=== PATIENT | female | born 1980 | race African-American/Black ===

== ENCOUNTER 2020-10-21 08:53 | Emergency (ER) | payer MEDICAID, OTHER ==
[~2020-10-21] VITALS: Ht 170.2 cm; Wt 73.0 kg
[2020-10-21 09:37] LABS: BASOPHILS % 0.6 % (0.0-2.0); EOSINOPHILS % 0.6 % (0.0-5.0); HEMATOCRIT. 37.9 % (36.0-48.0); HEMOGLOBIN. 12.7 g/dL (12.0-16.0); LYMPHOCYTES % 16.4 % (20.0-50.0); MEAN CORPUSCULAR HEMOGLOBIN 29.9 pg (28.0-32.0); MEAN CORPUSCULAR VOLUME 89.1 fL (81.0-99.0); NEUTROPHILS % 73.4 % (40.0-76.0); PLATELET 250 x1000/uL (130-400); RED BLOOD CELL COUNT 4.25 mill/uL (4.2-5.4); RED CELL DISTRIBUTION WIDTH 14.3 % (11.6-14.6)
[2020-10-21 09:43] LABS: CHLORIDE 110 mEq/L (98-107)
[2020-10-21 09:47] LABS: CLARITY URINE CLEAR (CLEAR); COLOR URINE YELLOW (YELLOW); KETONES URINE NEGATIVE (NEGATIVE); LEUKOCYTE ESTERASE URINE 1+ (NEGATIVE); NITRITE URINE NEGATIVE (NEGATIVE); OCCULT BLOOD URINE 3+ (NEGATIVE); PH URINE 5.5 (4.5-8.0); PROTEIN URINE TRACE (NEGATIVE); SPECIFIC GRAVITY URINE 1.014 (1.005-1.030); UROBILINOGEN URINE 0.2 E.U./dL (0.2-1.0)
[2020-10-21 09:48] LABS: PROTHROMBIN TIME 10.6 sec (9.6-11.0)
[2020-10-21 10:04] LABS: HCG SCREEN NEGATIVE
[2020-10-21] MEDS ORDERED: T3 PO (12:34)
[2020-10-21 12:50] VITALS: BP 125/80
== END 2020-10-21 12:52 | disposition home or self-care (01) ==
LOC: ER 09:46
DX: N13.2 Hydronephrosis with renal and ureteral calculous obstruction (principal); F12.10 Cannabis abuse, uncomplicated
CPT/HCPCS: 36415; 76770; 80053; 81003; 81025; 84703; 85025; 93005; 99285

== ENCOUNTER 2022-08-28 04:51 | Emergency (ER) | payer OTHER ==
[~2022-08-28] VITALS: Ht 172.7 cm; Wt 73.0 kg
[~2022-08-28 04:51] MED LIST: T3 PO
[2022-08-28 04:58] VITALS: BP 119/76
[2022-08-28] MEDS ORDERED: LIDOCAINE HCL/PF 1% 10 MG/ML 5ML VIAL INFIL ONE (05:45)
[2022-08-28] MEDS ORDERED: TETANUS, DIPHTHERIA, PERTUSSIS VAC/PF 0.5ML (>10YR OLD) IM ONE (05:45)
[2022-08-28] MEDS ORDERED: ACETAMINOPHEN WITH CODEINE 300/30MG TABLET PO ONE (05:45)
[2022-08-28] MEDS ORDERED: TOPUD PO (07:29)
== END 2022-08-28 08:26 | disposition home or self-care (01) ==
LOC: ER 04:51
DX: S01.511A Laceration without foreign body of lip, initial encounter (principal); S51.012A Laceration without foreign body of left elbow, initial encounter; S01.81XA Laceration without foreign body of other part of head, initial encounter; F12.10 Cannabis abuse, uncomplicated; V43.52XA Car driver injured in collision with other type car in traffic accident, initial encounter; Y93.89 Activity, other specified; Y92.488 Other paved roadways as the place of occurrence of the external cause
CPT/HCPCS: 12013; 70486; 71045; 73070; 73120; 90471; 90715; 99285; J3490; Z7610